=== PATIENT | male | born 1935 | race Caucasian/White ===

== ENCOUNTER 2016-09-26 10:33 | Emergency (ER) | payer MEDICARE ==
[~2016-09-26] VITALS: Ht 175.3 cm; Wt 88.9 kg
[~2016-09-26 10:33] MED LIST: ATEN50TA PO; ATOR40TA PO; DIGO250T PO; FINA5TAB11 PO; FLONASE; LEVO88TA2 PO; METF500T4 PO; RIVA10TA PO; TAMS0.4C34 PO
[2016-09-26] MEDS ORDERED: METF500T4 PO (10:55)
[2016-09-26] MEDS ORDERED: CHOL100030 PO (10:55)
[2016-09-26] MEDS ORDERED: SILO8CAP PO (10:55)
[2016-09-26] MEDS ORDERED: AZEL23SP NS (10:55)
[2016-09-26] MEDS ORDERED: TEST75GE TP (10:55)
--- NOTE | 2016-09-26 11:02 | NUR ---
DR WEINER AT THE BEDSIDE FOR EVAL AND EXAM.
--- NOTE | 2016-09-26 12:14 | NUR ---
PT RESTING W/ BOTH EYES CLOSED, NAD NOTED.
[2016-09-26 13:07] VITALS: BP 122/70
== END 2016-09-26 13:11 | disposition home or self-care (01) ==
LOC: ER 10:34
DX: M17.12 Unilateral primary osteoarthritis, left knee (principal); I10 Essential (primary) hypertension; E11.9 Type 2 diabetes mellitus without complications; I48.91 Unspecified atrial fibrillation; E03.9 Hypothyroidism, unspecified; E78.00 Pure hypercholesterolemia, unspecified; Z79.01 Long term (current) use of anticoagulants
CPT/HCPCS: 72170; 73551; 73562; A4663

== ENCOUNTER 2017-02-09 09:45 | Emergency (ER) | payer MEDICARE ==
[~2017-02-09] VITALS: Ht 177.8 cm; Wt 88.5 kg
[~2017-02-09 09:45] MED LIST changes: +AZEL23SP NS; +CHOL100045 PO; -FLONASE; +SILO8CAP PO; -TAMS0.4C34 PO; +TEST75GE TP
[2017-02-09] MEDS ORDERED: HYDR-3326 PO (09:57)
[2017-02-09] MEDS ORDERED: AMOX500T2 PO (09:57)
--- NOTE | 2017-02-09 10:47 | NUR ---
Patient discharged to home in stable conditon. Written and verbal after care instructions given. Patient verbalizes understanding of instructions.
== END 2017-02-09 10:48 | disposition home or self-care (01) ==
LOC: ER 09:45
DX: S60.511A Abrasion of right hand, initial encounter (principal); I10 Essential (primary) hypertension; E03.9 Hypothyroidism, unspecified; E11.9 Type 2 diabetes mellitus without complications; E78.00 Pure hypercholesterolemia, unspecified; I48.91 Unspecified atrial fibrillation; Z79.01 Long term (current) use of anticoagulants; W19.XXXA Unspecified fall, initial encounter; Y93.89 Activity, other specified; Y92.9 Unspecified place or not applicable; Y99.9 Unspecified external cause status
CPT/HCPCS: 99282; A4663

== ENCOUNTER 2020-12-28 19:01 | Inpatient (IN) | payer MEDICARE ==
[~2020-12-28] VITALS: Ht 177.8 cm; Wt 90.7 kg
[~2020-12-28 19:01] MED LIST changes: +AMOX500T2 PO; +HYDR-3326 PO; +METF-440 PO; -METF500T4 PO; -SILO8CAP PO; +SILO8CAP2 PO
[2020-12-28] MEDS ORDERED: ONDANSETRON ODT 4 MG TAB.RAPDIS SL ONE (19:45)
[2020-12-28] MEDS ORDERED: HYDROCODONE/APAP 5-325MG TABLET PO ONE (19:45)
[2020-12-28] MEDS ORDERED: ONDANSETRON ODT 4 MG TAB.RAPDIS ONE (19:51)
[2020-12-28] MEDS ORDERED: HYDROCODONE/APAP 5-325MG TABLET ONE (19:51)
--- NOTE | 2020-12-28 20:20 | NUR ---
PATIENT OUT OF UNIT FOR CT SCAN VIA GURNY
--- NOTE | 2020-12-28 20:30 | NUR ---
PATIENT BACK FROM CT SCAN WITH NO DISTRESS NOTED.
[2020-12-28 20:50] LABS: HEMATOCRIT 40.9 % (36.7-47.1); MEAN CORPUSCULAR HEMOGLOBIN 31.6 uug (23.8-33.4); MEAN CORPUSCULAR VOLUME 93.3 fL (73.0-96.2); PLATELET COUNT (AUTO) 227 K/uL (152-348)
[2020-12-28 20:55] LABS: CARBON DIOXIDE 28 mmol/L (21-32); CHLORIDE 106 mmol/L (98-107); CREATININE 1.1 mg/dL (0.6-1.3); GLUCOSE 148 mg/dL (74-106); POTASSIUM 4.2 mmol/L (3.5-5.1); UREA NITROGEN, BLOOD 21 mg/dL (7-18)
[2020-12-28] MEDS ORDERED: HYDROMORPHONE 1 MG/1 ML DISP.SYRIN IV ONE (21:00)
[2020-12-28] MEDS ORDERED: PIPERACILLIN SODIUM/TAZOBACTAM 3.375 G in IV DEXTROSE 5% 50 ML IV ONE (21:00)
[2020-12-28] MEDS ORDERED: IV NS 1000 ML 1,000 ML IV ONE (21:00)
[2020-12-28 21:01] LABS: ALANINE AMINOTRANSFERASE 39 U/L (16-63); ALKALINE PHOSPHATASE 65 U/L (50-136); ASPARTATE AMINOTRANSFERASE 27 U/L (15-37); BILIRUBIN,DIRECT 0.2 mg/dL (0.0-0.2); BILIRUBIN,TOTAL 0.8 mg/dL (0.2-1.0); LIPASE 165 U/L (73-393); TOTAL PROTEIN, SERUM 7.5 g/dL (6.4-8.2)
[2020-12-28] MEDS ORDERED: HYDROMORPHONE 1 MG/1 ML DISP.SYRIN ONE (21:32)
[2020-12-28] MEDS ORDERED: PIPERACILLIN/TAZOBACTAM/D5W 50 ML IV ONE (21:32)
--- NOTE | 2020-12-28 22:00 | NUR ---
Patient is resting comfortably in bed with eyes closed, no acute distress noted. Will continue to monitor.
[2020-12-28] MEDS ORDERED: METO-357 PO (22:14)
[2020-12-28] MEDS ORDERED: IPRA12.9 IH (22:14)
[2020-12-28] MEDS ORDERED: DEXTROSE 50% 50 ML DISP.SYRIN IV PRN (22:45)
[2020-12-28] MEDS ORDERED: Z GUARD REMEDY PASTE 57 GM TUBE TOP PRN (22:45)
[2020-12-28] MEDS ORDERED: ONDANSETRON 4 MG/2 ML VIAL IV PRN (22:45)
[2020-12-28] MEDS ORDERED: MAGNESIUM HYDROXIDE 30 ML LIQUID UDC PO PRN (22:45)
--- NOTE | 2020-12-28 23:56 | NUR ---
Patient will be going to med-surg room 302, DANIELLA Cuba took report.
--- NOTE | 2020-12-29 00:31 | NUR ---
Pt. admitted to [facility] med-surg, under care of Dr. Sibley. Belongs List completed
[2020-12-29 01:00] VITALS: BP 124/59
--- NOTE | 2020-12-29 01:10 | NUR ---
Patient brought to Med-surg unit from ER via rjamilah accompanied by Er nurse.Dx of small bowel obstruction. Patient alert x4.Denies abd'l pain at this time. No n/v.NGT on left nare in place.HOB elevated. Iv on right AC patent and intact. Started IVF at 57 ml/hr. Tolerated well.Aspiration precaution observed. SAfety measures in place. Call light with in reach.
[2020-12-29] MEDS: IV D5 1/2 NS 1000 ML 1,000 ML IV SCH ×2 (01:33→15:13)
[2020-12-29] MEDS ORDERED: PIPERACILLIN/TAZOBACTAM/D5W 50 ML IV ONE (01:54)
[2020-12-29 04:00] VITALS: BP 120/50
[2020-12-29] MEDS ORDERED: PIPERACILLIN SODIUM/TAZOBACTAM 3.375 G in IV DEXTROSE 5% 50 ML IV ONE (04:00)
[2020-12-29] MEDS: BLOOD SUGAR DIAGNOSTIC 1 EACH STRIP VI SCH ×4 (06:33→20:56)
[2020-12-29] MEDS: INSULIN REGULAR, HUMAN 300 UNIT/3 ML VIAL SQ PRN (07:40)
--- NOTE | 2020-12-29 07:43 | NUR ---
Patient's NGT came out. Refused NGT insertion at this time.Patient stated he wants to see his doctor this morning. Will endorse to oncoming shift.Charge nurse made aware.
[2020-12-29 09:37] LABS: HEMATOCRIT 39.3 % (36.7-47.1); MEAN CORPUSCULAR HEMOGLOBIN 31.6 uug (23.8-33.4); PLATELET COUNT (AUTO) 211 K/uL (152-348)
[2020-12-29 09:53] LABS: MAGNESIUM 2.2 mg/dL (1.8-2.4); PHOSPHOROUS 3.8 mg/dL (2.5-4.9); POTASSIUM 3.9 mmol/L (3.5-5.1)
[2020-12-29] MEDS ORDERED: PIPERACILLIN SODIUM/TAZOBACTAM 3.375 G in IV DEXTROSE 5% 50 ML IV SCH (10:00)
[2020-12-29] MEDS: PIPERACILLIN SODIUM/TAZOBACTAM 3.375 G in IV DEXTROSE 5% 100 ML IV SCH ×2 (11:01→19:57)
[2020-12-29 11:55] VITALS: BP 142/70
--- NOTE | 2020-12-29 13:00 | NUR ---
ng tube inserted per md orders
[2020-12-29 15:46] LABS: *BILIRUBIN,URIN NEGATIVE (NEGATIVE); *CLARITY,URINE CLEAR (CLEAR); *COLOR,URINE YELLOW (YELLOW); *KETONES,URINE NEGATIVE (NEGATIVE); *UROBILINOGEN,URINE 0.2 E.U./dl (NORMAL); LEUKOCYTE ESTERASE ,URINE NEGATIVE (NEGATIVE); NITRITE, URINE NEGATIVE (NEGATIVE); UGLUCOSE NEGATIVE (NEGATIVE)
[2020-12-29 15:51] LABS: *BLOOD, URINE NEGATIVE (NEGATIVE)
--- NOTE | 2020-12-29 16:00 | NUR ---
pt seen by dr lazo
[2020-12-29 20:00] VITALS: BP 156/85
--- NOTE | 2020-12-29 20:12 | NUR ---
Received patient in bed AALox4 noted with NGT on left nare attached to low intermittent suction noted with 100 cc of mild yellowish output.Patient denies abd'l pain at this time. No n/v. On Ra.No s/s of distress noted. Reminded patient to keep HOB elevated.Iv on right hand patent and intact with IVF running well. Refused blood sugar check. Explained risk and benefit. Patient still refused. Stated to check his BS in the morning.Will continue to monitor. Call light with in reach.
[2020-12-29] MEDS: MORPHINE SULFATE 2 MG/1 ML DISP.SYRIN IV PRN (22:51)
[2020-12-30] MEDS: IV D5 1/2 NS 1000 ML 1,000 ML IV SCH ×2 (01:56→14:06)
[2020-12-30 04:00] VITALS: BP 134/74
[2020-12-30] MEDS: PIPERACILLIN SODIUM/TAZOBACTAM 3.375 G in IV DEXTROSE 5% 100 ML IV SCH ×3 (04:03→19:02)
[2020-12-30] MEDS: BLOOD SUGAR DIAGNOSTIC 1 EACH STRIP VI SCH ×4 (06:57→21:19)
[2020-12-30] MEDS: MORPHINE SULFATE 2 MG/1 ML DISP.SYRIN IV PRN (07:18)
[2020-12-30 11:00] VITALS: BP 94/51
[2020-12-30] MEDS ORDERED: GOLYTELY 4000 ML BOTTLE PO ONE (12:00)
[2020-12-30 16:00] VITALS: BP 157/83
--- NOTE | 2020-12-30 16:24 | NUR ---
dr Torres ordered to discontinue the NG tube, patient is on clear liquid diet, drinking golyte liquid orally, being compliant for now, patient also has 2 large loose BMs
--- NOTE | 2020-12-30 18:42 | NUR ---
patient is alert, oriented x4, no sob, resp even nonlabored, skin warm and dry to touch, no acute distress noted, ambulatory, drinking his golyte solution, and having loose BMs. patient verbalized the understanding of instructions to drink golyte solution.
[2020-12-30 20:10] VITALS: BP 126/51
--- NOTE | 2020-12-30 22:12 | NUR ---
Patient alert and able to make needs known. Denies Abd'l pain.BS noted 79.Offered juice.Tolerated well.Assisted patient to bathroom Bm x 2.Reminded patient to consume golytely solution. Verbalized understanding.Iv on right hand ,no s/s of infiltration. Continue on IVF infusing well and ATB therapy. No a/r noted. Will continue to monitor.Call light with in reach.
[2020-12-31] MEDS: MORPHINE SULFATE 2 MG/1 ML DISP.SYRIN IV PRN ×2 (01:52→15:31)
[2020-12-31] MEDS: IV D5 1/2 NS 1000 ML 1,000 ML IV SCH ×2 (03:48→17:29)
[2020-12-31] MEDS: PIPERACILLIN SODIUM/TAZOBACTAM 3.375 G in IV DEXTROSE 5% 100 ML IV SCH ×3 (03:50→20:22)
[2020-12-31 04:20] VITALS: BP 135/74
[2020-12-31] MEDS: BLOOD SUGAR DIAGNOSTIC 1 EACH STRIP VI SCH ×4 (06:44→20:23)
[2020-12-31] MEDS ORDERED: GOLYTELY 4000 ML BOTTLE PO ONE (08:30)
[2020-12-31 11:24] VITALS: BP 141/68
[2020-12-31 15:39] VITALS: BP_SYST 109; BP_SYST 141; BP_DIAS 63; BP_DIAS 68
[2020-12-31] MEDS: INSULIN REGULAR, HUMAN 300 UNITS/3 ML VIAL SQ PRN (18:13)
--- NOTE | 2020-12-31 19:45 | NUR ---
RECEIVED PATIENT AWAKE IN BED. A/O X3. DENIES ANY PAIN AT THIS TIME. NO RESP. DISTRESS NOTED. IVF INFUSING WELL TO RIGHT UPPER ARM, MID-LINE. CALL LIGHT IN REACH. ALL NEEDS ATTENDED. WILL CONTINUE TO MONITOR AND ASSESS.
[2020-12-31 20:00] VITALS: BP 132/81
[2020-12-31] MEDS: ACETAMINOPHEN 325 MG TABLET PO PRN (20:23)
--- NOTE | 2020-12-31 20:30 | NUR ---
PATIENT C/O LOWER BACK PAIN. GIVEN TYLENOL 650MG PO PRN FOR PAIN. WILL CONTINUE TO MONITOR AND ASSESS.
--- NOTE | 2020-12-31 21:35 | NUR ---
REPORT GIVEN TO NURSE FOR SHIFT CHANGE.
--- NOTE | 2020-12-31 22:00 | NUR ---
received to care at 2130, lying in bed, alert and oriented. IV 1/2 NS is running to E at 75 cc/hour. patient is aware of procedures scheduled for the morning, and NPO status, beginning at midnight. he reports minimal relief from tylenol, given at 2000 for lower back pain, currently 6/10, on pain scale. he requested tylenol, but was told it can only be given every 6 hours. he was offered IV morphine, but he declined. he was encouraged to call, if he changes his mind. call light remains in reach. in no acute distress noted, at this time. will continue to monitor closely.
[2021-01-01] MEDS: MORPHINE SULFATE 2 MG/1 ML DISP.SYRIN IV PRN (02:18)
--- NOTE | 2021-01-01 02:18 | NUR ---
morphine sulfate 2 mg, IV, given at this time, for lower back pain, 10/10, on pain scale.
--- NOTE | 2021-01-01 02:48 | NUR ---
reports good (2/10) pain relief. appears to be falling asleep. no distress noted.
[2021-01-01 04:00] VITALS: BP 145/85
[2021-01-01] MEDS: PIPERACILLIN SODIUM/TAZOBACTAM 3.375 G in IV DEXTROSE 5% 100 ML IV SCH ×3 (04:08→20:14)
[2021-01-01 05:54] LABS: HEMATOCRIT 38.7 % (36.7-47.1); MEAN CORPUSCULAR HEMOGLOBIN 31.7 uug (23.8-33.4); PLATELET COUNT (AUTO) 204 K/uL (152-348)
[2021-01-01 06:20] LABS: BILIRUBIN,DIRECT 0.1 mg/dL (0.0-0.2); MAGNESIUM 2.1 mg/dL (1.8-2.4); PHOSPHOROUS 3.6 mg/dL (2.5-4.9); POTASSIUM 4.1 mmol/L (3.5-5.1); TOTAL PROTEIN, SERUM 6.9 g/dL (6.4-8.2)
[2021-01-01] MEDS: BLOOD SUGAR DIAGNOSTIC 1 EACH STRIP VI SCH ×4 (06:53→20:30)
--- NOTE | 2021-01-01 07:00 | NUR ---
AM blood sugae was 1555. refused insulin coverage. is very irritable.
[2021-01-01] MEDS: INSULIN REGULAR, HUMAN 300 UNIT/3 ML VIAL SQ PRN ×3 (07:06→11:20)
[2021-01-01] MEDS: IV D5 1/2 NS 1000 ML 1,000 ML IV SCH (09:01)
[2021-01-01] MEDS: ACETAMINOPHEN 325 MG TABLET PO PRN ×3 (09:04→21:02)
[2021-01-01 11:34] VITALS: BP 119/56
[2021-01-01 15:01] VITALS: BP 115/70
--- NOTE | 2021-01-01 19:29 | NUR ---
NSG: RECEIVED PATIENT AWAKE LYING IN BED. ALERT AND ORIENTED X3. DENIES AND DISCOMFORT AT THIS TIME. NO RESP. DISTRESS NOTED. IVF INFUSING WELL TO RIGHT UPPER ARM VIA MIDLINE.CALL LIGHT IN REACH. WILL CONTINUE TO MONITOR AND ASSESS.
[2021-01-01 20:00] VITALS: BP 115/65
[2021-01-01] MEDS: INSULIN REGULAR, HUMAN 300 UNITS/3 ML VIAL SQ PRN (20:31)
--- NOTE | 2021-01-01 21:02 | NUR ---
patient c/o gen: pain. tylenol 650 mg po given.
[2021-01-02] MEDS: IV D5 1/2 NS 1000 ML 1,000 ML IV SCH (00:06)
--- NOTE | 2021-01-02 00:28 | NUR ---
patient is npo. resting in bed comfortably. continue plan of care.
[2021-01-02] MEDS: MORPHINE SULFATE 2 MG/1 ML DISP.SYRIN IV PRN (02:57)
[2021-01-02] MEDS: PIPERACILLIN SODIUM/TAZOBACTAM 3.375 G in IV DEXTROSE 5% 100 ML IV SCH ×2 (03:29→11:11)
[2021-01-02 04:00] VITALS: BP 139/92
--- NOTE | 2021-01-02 04:43 | NUR ---
NSG: REMAIN CALM AND COOPERATIVE. NPO AFTER MIDNIGHT FOR COLONOSCOPY THIS MORNING. CALL LIGHT W/IN REACH. CONTINUE PLAN OF CARE.
[2021-01-02] MEDS: BLOOD SUGAR DIAGNOSTIC 1 EACH STRIP VI SCH ×2 (06:34→11:05)
--- NOTE | 2021-01-02 08:15 | NUR ---
pt went to gi lab for the procedure via bed in stable condition
--- NOTE | 2021-01-02 10:10 | NUR ---
pt received from recovery via bed in stable condition
[2021-01-02 10:30] VITALS: BP 140/80
[2021-01-02 10:40] VITALS: BP 141/86
[2021-01-02 11:08] VITALS: BP 140/82
[2021-01-02] MEDS: ACETAMINOPHEN 325 MG TABLET PO PRN (11:18)
[2021-01-02 11:20] VITALS: BP 137/76
[2021-01-02] MEDS ORDERED: PROPOFOL 200 MG/20 ML BOTTLE IV ONE (14:59)
--- NOTE | 2021-01-02 15:01 | NUR ---
dc orders received noted and carried out,dc midline per md orders,dc instruction and education given to the pt,pt said he will follow up with his pcp in one week.pt left the facility via private car in stable condition
== END 2021-01-02 15:00 | disposition home or self-care (01) | DRG 392 ==
LOC: ER 19:03 → MEDSURG3 22:48
PROVIDERS: ADMIT Internal Medicine; ATTEND Internal Medicine
PROC: 05H533Z Insertion of Infusion Device into Right Subclavian Vein, Percutaneous Approach (ICD-10-PCS; principal; 2020-12-31)
PROC: B546ZZA Ultrasonography of Right Subclavian Vein, Guidance (ICD-10-PCS; 2020-12-31)
PROC: 0DBK8ZX Excision of Ascending Colon, Via Natural or Artificial Opening Endoscopic, Diagnostic (ICD-10-PCS; 2021-01-02)
PROC: 0DBL8ZX Excision of Transverse Colon, Via Natural or Artificial Opening Endoscopic, Diagnostic (ICD-10-PCS; 2021-01-02)
DX: K57.30 Diverticulosis of large intestine without perforation or abscess without bleeding (principal); I48.91 Unspecified atrial fibrillation; E03.9 Hypothyroidism, unspecified; E11.9 Type 2 diabetes mellitus without complications; E78.5 Hyperlipidemia, unspecified; N40.0 Benign prostatic hyperplasia without lower urinary tract symptoms; Z79.01 Long term (current) use of anticoagulants; Z79.84 Long term (current) use of oral hypoglycemic drugs; Z79.899 Other long term (current) drug therapy; I10 Essential (primary) hypertension; D64.9 Anemia, unspecified; Z20.822 Contact with and (suspected) exposure to COVID-19; N20.0 Calculus of kidney; K63.5 Polyp of colon; Z79.890 Hormone replacement therapy; Z87.891 Personal history of nicotine dependence
CPT/HCPCS: 36415; 70030-TC; 71045; 71250; 74018; 74270; 82378; 83550; 83690; 83735; 84100; 84153; 85025; 93005; A4217; A4663; G0378; J1170; J1815; J2270; J2543; J3490; J7030; J7040; J7060; Q0162

== ENCOUNTER 2021-02-26 09:26 | Emergency (ER) | payer MEDICARE ==
[~2021-02-26] VITALS: Ht 175.3 cm; Wt 88.5 kg
[~2021-02-26 09:26] MED LIST changes: -AMOX500T2 PO; -HYDR-3326 PO; +IPRA12.9 IH; +METO-357 PO; -TEST75GE TP
--- NOTE | 2021-02-26 10:28 | NUR ---
Pt is in room #1b. dr Chauhan evaluated the pt.
--- NOTE | 2021-02-26 11:49 | NUR ---
PT WAS D/C'd TO HOME AFTER DR DEUTSCH EVALUATION. D/C INSTRUCTIONS GIVEN TO THE PT BY DR DEUTSCH.
[2021-02-26 11:50] VITALS: BP 143/84
== END 2021-02-26 11:51 | disposition home or self-care (01) ==
LOC: ER 09:27
DX: T85.628A Displacement of other specified internal prosthetic devices, implants and grafts, initial encounter (principal); H04.301 Unspecified dacryocystitis of right lacrimal passage; F17.200 Nicotine dependence, unspecified, uncomplicated; E11.9 Type 2 diabetes mellitus without complications; Z79.84 Long term (current) use of oral hypoglycemic drugs; Z79.899 Other long term (current) drug therapy; Z79.890 Hormone replacement therapy; E03.9 Hypothyroidism, unspecified; I48.91 Unspecified atrial fibrillation; Z79.01 Long term (current) use of anticoagulants
CPT/HCPCS: A4663

== ENCOUNTER 2022-03-28 02:48 | Emergency (ER) | payer MEDICARE ==
[~2022-03-28] VITALS: Ht 172.7 cm; Wt 90.7 kg
--- NOTE | 2022-03-28 03:11 | NUR ---
Patient arrived at the ER with complain of LLQ abd. pain. Patient reported he was Dx with diverticulosis on 03/23.
--- NOTE | 2022-03-28 03:14 | NUR ---
on bedside for MSE.
[2022-03-28 03:50] LABS: HEMATOCRIT 39.6 % (36.7-47.1); MEAN CORPUSCULAR HEMOGLOBIN 30.5 uug (23.8-33.4); MEAN CORPUSCULAR VOLUME 91.4 fL (73.0-96.2); PLATELET COUNT (AUTO) 248 K/uL (152-348)
[2022-03-28 04:00] LABS: CARBON DIOXIDE 29 mmol/L (21-32); CHLORIDE 105 mmol/L (98-107); GLUCOSE 130 mg/dL (74-106); POTASSIUM 3.8 mmol/L (3.5-5.1); UREA NITROGEN, BLOOD 12 mg/dL (7-18)
[2022-03-28 04:06] LABS: ALANINE AMINOTRANSFERASE 22 U/L (16-63); ALKALINE PHOSPHATASE 87 U/L (50-136); ASPARTATE AMINOTRANSFERASE 14 U/L (15-37); BILIRUBIN,DIRECT 0.3 mg/dL (0.0-0.2); BILIRUBIN,TOTAL 1.2 mg/dL (0.2-1.0); LIPASE 147 U/L (73-393); TOTAL PROTEIN, SERUM 7.4 g/dL (6.4-8.2)
--- NOTE | 2022-03-28 04:11 | NUR ---
Patient back from CT.
[2022-03-28 04:12] LABS: *BILIRUBIN,URIN NEGATIVE (NEGATIVE); *BLOOD, URINE 2+ (NEGATIVE); *CLARITY,URINE CLEAR (CLEAR); *COLOR,URINE YELLOW (YELLOW); *KETONES,URINE NEGATIVE (NEGATIVE); *UROBILINOGEN,URINE 0.2 E.U./dl (NORMAL); LEUKOCYTE ESTERASE ,URINE NEGATIVE (NEGATIVE); NITRITE, URINE NEGATIVE (NEGATIVE); UGLUCOSE NEGATIVE (NEGATIVE)
[2022-03-28 04:14] LABS: BACTERIA,URINE NONE SEEN /HPF (NONE SEEN); SQUAMOUS EPITHELIAL CELL,UR NONE SEEN /HPF (NONE SEEN); WBC,URINE 0-3 /HPF (0-3)
[2022-03-28] MEDS ORDERED: HYDR-3980 PO (05:07)
[2022-03-28] MEDS ORDERED: AMOX-430 PO (05:07)
[2022-03-28] MEDS ORDERED: METR500T PO (05:07)
[2022-03-28] MEDS ORDERED: METRONIDAZOLE 500 MG TABLET PO ONE (05:15)
[2022-03-28] MEDS ORDERED: AMOXICILLIN-CLAVUL 875-125MG TABLET PO ONE (05:15)
[2022-03-28] MEDS ORDERED: METRONIDAZOLE 500 MG TABLET ONE (05:30)
[2022-03-28] MEDS ORDERED: AMOXICILLIN-CLAVUL 875-125MG TABLET ONE (05:30)
--- NOTE | 2022-03-28 05:40 | NUR ---
Patient discharged to home in stable condition. Written and verbal after care instructions given. Patient verbalizes understanding of instructions. Stressed follow up or return to ER for worsening s/s. Patient walked out with steady gait.
[2022-03-28 05:43] VITALS: BP 135/70
== END 2022-03-28 05:40 | disposition home or self-care (01) ==
LOC: ER 02:52
DX: K57.32 Diverticulitis of large intestine without perforation or abscess without bleeding (principal); I48.91 Unspecified atrial fibrillation; Z79.01 Long term (current) use of anticoagulants; Z79.899 Other long term (current) drug therapy; F17.200 Nicotine dependence, unspecified, uncomplicated; E03.9 Hypothyroidism, unspecified; Z79.890 Hormone replacement therapy; E11.9 Type 2 diabetes mellitus without complications; Z79.84 Long term (current) use of oral hypoglycemic drugs
CPT/HCPCS: 36415; 83605; 83690; 83735; 85025; 93005; A4663

== ENCOUNTER 2022-04-03 11:15 | Emergency (ER) | payer MEDICARE ==
[~2022-04-03] VITALS: Ht 172.7 cm; Wt 88.5 kg
[~2022-04-03 11:15] MED LIST changes: +AMOX-430 PO; +HYDR-3980 PO; +METR500T PO
[2022-04-03] MEDS ORDERED: AMOX-430 PO (12:11)
[2022-04-03] MEDS ORDERED: METR500T PO (12:11)
--- NOTE | 2022-04-03 12:21 | NUR ---
Patient discharged to home in stable condition. Written and verbal after care instructions given. Patient verbalizes understanding of instructions. Stressed follow up or return to ER for worsening s/s.
== END 2022-04-03 12:21 | disposition home or self-care (01) ==
LOC: ER 11:15
DX: K57.92 Diverticulitis of intestine, part unspecified, without perforation or abscess without bleeding (principal); Z76.0 Encounter for issue of repeat prescription; I48.91 Unspecified atrial fibrillation; Z79.01 Long term (current) use of anticoagulants; E11.9 Type 2 diabetes mellitus without complications; Z79.84 Long term (current) use of oral hypoglycemic drugs; F17.200 Nicotine dependence, unspecified, uncomplicated; E03.9 Hypothyroidism, unspecified; Z79.890 Hormone replacement therapy; F03.90 Unspecified dementia, unspecified severity, without behavioral disturbance, psychotic disturbance, mood disturbance, and anxiety
CPT/HCPCS: A4663

== ENCOUNTER 2022-11-18 10:58 | Emergency (ER) | payer MEDICARE ==
[~2022-11-18] VITALS: Ht 175.3 cm; Wt 88.5 kg
[2022-11-18 10:58] VITALS: O2SAT 97
[2022-11-18] MEDS ORDERED: TRANEXAMIC ACID 1,000 MG/10 ML VIAL IR ONE (11:45)
[2022-11-18] MEDS ORDERED: TRANEXAMIC ACID 1,000 MG/10 ML VIAL ONE (11:47)
== END 2022-11-18 12:30 | disposition home or self-care (01) ==
LOC: ER 10:58
DX: K06.8 Other specified disorders of gingiva and edentulous alveolar ridge (principal); I48.91 Unspecified atrial fibrillation; E78.5 Hyperlipidemia, unspecified; E11.9 Type 2 diabetes mellitus without complications; F17.210 Nicotine dependence, cigarettes, uncomplicated; E03.9 Hypothyroidism, unspecified; Z79.899 Other long term (current) drug therapy
CPT/HCPCS: A4663